=== PATIENT | female | born 1975 | race African-American/Black ===

== ENCOUNTER 2023-11-20 21:06 | Emergency (ER) | payer OTHER ==
[2023-11-20 21:21] VITALS: BMI 29.2
[2023-11-20 22:37] LABS: POTASSIUM 4.3 mmol/L (3.5-5.1)
[2023-11-20 22:39] LABS: CALCIUM 8.8 mg/dL (8.5-10.1)
[2023-11-20 22:40] LABS: ALBUMIN 3.5 g/dl (3.4-5.0); BLOOD UREA NITROGEN 8.3 mg/dL (7-18)
[2023-11-20 22:43] LABS: CREATININE 0.8 mg/dL (0.55-1.3)
[2023-11-20 22:44] LABS: BILIRUBIN,TOTAL 0.3 mg/dL (0.2-1); TOT PROT 7.5 g/dl (6.4-8.2)
[2023-11-20 22:45] LABS: PH,URINE 5.5 (5.0-8.0); URINE APPEARANCE CLEAR; URINE BILIRUBIN NEGATIVE (NEGATIVE); URINE COLOR YELLOW; URINE GLUCOSE (UA) NEGATIVE (NEGATIVE); URINE KETONE 1+ (NEGATIVE); URINE LEUK ESTERASE NEGATIVE (NEGATIVE); URINE NITRITE NEGATIVE (NEGATIVE); URINE PROTEIN NEGATIVE (NEGATIVE)
[2023-11-20 23:05] LABS: EOS % 0.2 % (0-4.5); HEMATOCRIT 23.6 % (32.4-45.2); LYMPH % 62.2 % (8-40); MCHC 28.7 g/dl (32.0-36.0); MEAN CELL VOLUME 64.7 fl (80-96); MEAN PLT VOLUME 8.4 fl (7.5-11.1); MONO % 5.2 % (3.8-10.2); NEUT % 31.4 % (42.8-82.8); PLATELET COUNT 371 10^3/uL (134-434); RBC 3.65 M/mm3 (3.60-5.2); RDW 36.9 % (11.6-15.6); WHITE BLOOD COUNT 5.2 K/mm3 (4.0-10.0)
[2023-11-20 23:10] LABS: MCH 18.6 pg (25.7-33.7)
[2023-11-20 23:11] LABS: HEMOGLOBIN 6.8 GM/dL (10.7-15.3)
[2023-11-21] LABS: INR 0.94 (0.83-1.09); PROTHROMBIN TIME (PATIENT) 10.8 SEC (9.7-13.0)
[2023-11-21 00:03] LABS: ACTIVATED PTT 30.1 SECONDS (25.2-36.5)
[2023-11-21 00:08] LABS: ANISOCYTOSIS 3+; MACROCYTOSIS 0; OVALOCYTE 1+; TARGET CELLS 1+; TEAR DROP CELLS 1+
[2023-11-21] MEDS ORDERED: FERROUS SO4 325 MG TABLET (FP) ONE (00:33)
[2023-11-21] MEDS: FERROUS SO4 325 MG TABLET (FP) PO ONE (00:39)
[2023-11-21 05:02] VITALS: BP 135/71; PULSE 79; RESP 18; TEMP 98.7
== END 2023-11-21 05:02 | disposition home or self-care (01) ==
LOC: JER 21:06
DX: D64.9 Anemia, unspecified (principal); D25.9 Leiomyoma of uterus, unspecified; R10.31 Right lower quadrant pain; R06.02 Shortness of breath
CPT/HCPCS: 36415; 36430; 74177-TC; 80053; 81003; 82272; 82728; 83540; 83550; 84466; 84703; 85025; 85610; 85730; 86850; 86900; 86901; 86922; 87086; 93005; 93010; 99285-25; P9038; P9058; Q9967

== ENCOUNTER 2024-01-18 04:21 | Inpatient (IN) | payer OTHER ==
[2024-01-10 13:08] VITALS: BMI 32.0
[2024-01-18] MEDS ORDERED: PROPOFOL 20 ML ONE (10:39)
[2024-01-18] MEDS ORDERED: MIDAZOLAM HCL 2 MG/2 ML SINGLE DOSE VIAL ONE ×2 (10:39→13:10)
[2024-01-18] MEDS ORDERED: ROCURONIUM BROMIDE 50 MG/5 ML SYRINGE ONE ×2 (10:39→12:25)
[2024-01-18] MEDS ORDERED: BUPIVACAINE HCL/PF 0.5% (5MG/ML) 10 ML VIAL ONE ×2 (10:46→10:50)
[2024-01-18] MEDS ORDERED: BUPIVACAINE LIPOSOME/PF (EXPAREL) 266 MG/20 ML VIAL ONE (10:46)
[2024-01-18] MEDS: ceFAZolin SODIUM 1 GM VIAL IVPB ONE (11:20)
[2024-01-18] MEDS ORDERED: HYDROmorphone HCl 2 MG/ML VIAL ONE (11:20)
[2024-01-18] MEDS ORDERED: ceFAZolin SODIUM 1 GM VIAL ONE (11:43)
[2024-01-18] MEDS ORDERED: KETOROLAC TROMETHAMINE 30 MG/1 ML VIAL ONE (11:43)
[2024-01-18] MEDS ORDERED: DEXAMETHASONE SOD PHOSPHATE 4 MG/1 ML VIAL ONE (11:43)
[2024-01-18] MEDS ORDERED: ONDANSETRON 4 MG/2 ML VIAL ONE (11:43)
[2024-01-18] MEDS ORDERED: SUCCINYLCHOLINE CHLORIDE 200 MG/10 ML SYRINGE ONE (12:25)
[2024-01-18] MEDS ORDERED: NEOSTIGMINE METHYLSULFATE 0.5 MG/1 ML - 10 ML MDV ONE (12:27)
[2024-01-18] MEDS ORDERED: DOCUSATE SODIUM 100 MG CAPSULE (FP) PO PRN (13:24)
[2024-01-18] MEDS ORDERED: ONDANSETRON 4 MG/2 ML VIAL IVPUSH PRN ×3 (13:24→13:27)
[2024-01-18] MEDS ORDERED: BISACODYL 5 MG TABLET.DR (FP) PO PRN (13:24)
[2024-01-18] MEDS ORDERED: oxyCODONE HCL 5 MG TABLET PO PRN (13:24)
[2024-01-18] MEDS ORDERED: ACETAMINOPHEN INJECTION 100 ML ONE (13:45)
[2024-01-18] MEDS: ACETAMINOPHEN 1000 MG/100 ML BAG IVPB SCH ×2 (13:47→20:15)
[2024-01-18] MEDS: CEFAZOLIN SODIUM 2 GM in DEXTROSE 5%-WATER 100 ML IVPB ONE (13:48)
[2024-01-18] MEDS: LACTATED RINGERS SOLUTION 1,000 ML IV SCH (13:48)
[2024-01-18] MEDS: oxyCODONE HCL 5 MG TABLET PO PRN (17:26)
[2024-01-18] MEDS ORDERED: CEFAZOLIN 1 GM in DEXTROSE 5%-WATER - 50 ML IVPB SCH (19:00)
[2024-01-18] MEDS: CEFAZOLIN 1 GM in DEXTROSE 5%-WATER - 50 ML IVPB SCH (19:44)
[2024-01-18] MEDS: IBUPROFEN 800 MG/8 ML IJ IVPB SCH (20:33)
[2024-01-19 07:26] LABS: HEMATOCRIT 19.2 % (32.4-45.2); MCHC 26.6 g/dl (32.0-36.0); MEAN PLT VOLUME 8.2 fl (7.5-11.1); PLATELET COUNT 153 10^3/uL (134-434); RBC 2.96 M/mm3 (3.60-5.2); RDW 28.7 % (11.6-15.6); WHITE BLOOD COUNT 16.1 K/mm3 (4.0-10.0)
[2024-01-19 07:38] LABS: MCH 17.3 pg (25.7-33.7)
[2024-01-19 07:40] LABS: HEMOGLOBIN 5.1 GM/dL (10.7-15.3)
[2024-01-19] MEDS: SIMETHICONE 80 MG TAB.CHEW (FP) PO PRN (11:41)
[2024-01-19] MEDS ORDERED: ACETAMINOPHEN 500 MG TABLET (FP) PO PRN (14:00)
[2024-01-19] MEDS: CEFAZOLIN 1 GM in DEXTROSE 5%-WATER - 50 ML IVPB ONE (14:17)
[2024-01-19] MEDS: IRON SUCROSE INJECTION 200 MG in SODIUM CHLORIDE 100 ML IVPB ONE (20:09)
[2024-01-19] MEDS: IBUPROFEN 600 MG TABLET (FP) PO PRN (21:21)
[2024-01-20 00:23] VITALS: RESP 18
[2024-01-20 08:44] LABS: BASO % 0.6 % (0-2.0); EOS % 0.2 % (0-4.5); HEMOGLOBIN 7.3 GM/dL (10.7-15.3); LYMPH % 22.3 % (8-40); MCHC 29.4 g/dl (32.0-36.0); MEAN PLT VOLUME 8.5 fl (7.5-11.1); MONO % 4.8 % (3.8-10.2); NEUT % 72.1 % (42.8-82.8); PLATELET COUNT 127 10^3/uL (134-434); RBC 3.68 M/mm3 (3.60-5.2); RDW 27.9 % (11.6-15.6); WHITE BLOOD COUNT 13.7 K/mm3 (4.0-10.0)
[2024-01-20 10:20] VITALS: BP 164/100; PULSE 82; TEMP 98.4
== END 2024-01-20 11:10 | disposition left against medical advice (07) | DRG 743 ==
LOC: J2C 04:21 → J3W 15:14 → EDSTATUS 01-25 08:00
PROVIDERS: ADMIT Specialist; ATTEND Specialist
PROC: 0UT90ZZ Resection of Uterus, Open Approach (ICD-10-PCS; principal; 2024-01-18 10:00)
PROC: 0UT70ZZ Resection of Bilateral Fallopian Tubes, Open Approach (ICD-10-PCS; 2024-01-18 10:00)
PROC: 30233N1 Transfusion of Nonautologous Red Blood Cells into Peripheral Vein, Percutaneous Approach (ICD-10-PCS; 2024-01-19)
DX: D25.9 Leiomyoma of uterus, unspecified (principal); N92.0 Excessive and frequent menstruation with regular cycle; R10.2 Pelvic and perineal pain; D50.9 Iron deficiency anemia, unspecified; N72 Inflammatory disease of cervix uteri
CPT/HCPCS: 36415; 36430; 84703; 85025; 85027; 86850; 86900; 86901; 86922; 88307-TC; 94010; 94760; J0131; J1756; P9058